=== PATIENT | female | born 1950 | race Hispanic/Latino ===

== ENCOUNTER 2016-11-26 16:12 | Inpatient (IN) | payer MEDICARE ==
[2016-11-26] MEDS ORDERED: DUONEB *Not for PRN Use IH ONE (17:28)
--- NOTE | 2016-11-26 17:28 | Emergency Department Report ---
ED Shortness of Breath HPI - General Chief Complaint: Dyspnea/Respdistress Stated Complaint: CHEST PAIN/SOB Source: patient, EMS Mode of arrival: Stretcher Limitations: No Limitations - History of Present Illness MD Complaint: shortness of breath -: Sudden Severity: severe Pain Scale: 6 Quality: aching Consistency: constant Improves With: bronchodilators Worsens With: exertion Known History Of: COPD Context: recent URI Associated Symptoms: chest pain, pain with inspiration Treatments Prior to Arrival: bronchodilator - Related Data Home Oxygen Therapy: No Home Medications Medication Instructions Recorded Confirmed Last Taken Atenolol [Tenormin] 25 mg PO DAILY 11/26/16 11/26/16 Unknown Morphine ER 11/26/16 Unknown Allergies Allergy/AdvReac Type Severity Reaction Status Date / Time levofloxacin [From Levaquin] Allergy Itching Verified 05/03/14 11:36 acetaminophen [From Percocet] AdvReac Unknown Verified 05/03/14 11:36 oxycodone HCl [From Percocet] AdvReac Unknown Verified 05/03/14 11:36 ED Review of Systems ROS: Stated complaint: CHEST PAIN/SOB Other details as noted in HPI Comment: All other systems reviewed and negative Respiratory: SOB at rest, wheezing Cardiovascular: chest pain, dyspnea on exertion ED Past Medical Hx - Past Medical History Hx Hypertension: Yes Hx COPD: Yes Additional medical history: bronchitis, chiari malformation - Surgical History Hx Cholecystectomy: Yes Hx Appendectomy: Yes Additional Surgical History: nasal repair, lymph node remove - Social History Smoking Status: Current Every Day Smoker Substance Use Type: None - Medications Home Medications: Home Medications Medication Instructions Recorded Confirmed Last Taken Type Atenolol [Tenormin] 25 mg PO DAILY 11/26/16 11/26/16 Unknown History Morphine ER 11/26/16 Unknown History ED Physical Exam - General Limitations: No Limitations General appearance: in distress - Head Head exam: Present: atraumatic - Eye Eye exam: Present: normal appearance Pupils: Present: normal accommodation - Respiratory Respiratory exam: Present: respiratory distress, wheezes, decreased breath sounds - Cardiovascular Cardiovascular Exam: Present: regular rate - GI/Abdominal GI/Abdominal exam: Present: soft - Rectal Rectal exam: Present: deferred - Extremities Exam Extremities exam: Present: normal inspection - Back Exam Back exam: Present: normal inspection - Neurological Exam Neurological exam: Present: alert - Skin Skin exam: Present: warm, dry ED Course Vital Signs 11/26/16 11/26/16 11/26/16 17:34 18:00 18:15 Temperature 98.3 F Pulse Rate 80 Pulse Rate [ 75 80 Anterior Bilateral Upper Lobe] Respiratory 20 Rate Respiratory 18 18 Rate [Anterior Bilateral Upper Lobe] Blood Pressure 121/66 [Right] O2 Sat by Pulse 92 Oximetry - Reevaluation(s) Reevaluation #1: 11/26/16 18:36 improved with meds ED Medical Decision Making - Lab Data Result diagrams: 11/26/16 Unknown 11/26/16 16:50 Critical Care Time: Yes (30) Critical care attestation.: If time is entered above; I have spent that time in minutes in the direct care of this critically ill patient, excluding procedure time. 30 ED Disposition Clinical Impression: Respiratory distress Disposition: DC-09 OP ADMIT IP TO THIS HOSP Is pt being admited?: Yes Does the pt Need Aspirin: No Condition: Undetermined Referrals: PRIMARY CARE, [Primary Care Provider] - 3-5 Days
[2016-11-26 18:02] LABS: Basophils % (Auto) 1.2 % (0.0-1.8); Eosinophils % (Auto) 0.8 % (0.0-4.3); Hemoglobin 19.3 gm/dl (10.1-14.3); Mean Corpuscular HGB Conc 33 % (30-34); Mean Corpuscular Hemoglobin 30 pg (28-32); Mean Corpuscular Volume 91 fl (79-97); Platelet Count 194 K/mm3 (140-440); Red Blood Count 6.44 M/mm3 (3.65-5.03); Red Cell Distribution Width 14.6 % (13.2-15.2)
[2016-11-26 18:04] LABS: Anion Gap 20 mmol/L; BUN/Creatinine Ratio 13.75; Blood Urea Nitrogen 11 mg/dL (7-17); Calcium 10.8 mg/dL (8.4-10.2); Carbon Dioxide 31 mmol/L (22-30); Chloride 91.8 mmol/L (98-107); Glucose 110 mg/dL (65-100); Potassium 3.9 mmol/L (3.6-5.0); Sodium 139 mmol/L (137-145)
[2016-11-26 18:06] LABS: Hematocrit 58.4 % (30.3-42.9)
[2016-11-26 18:34] LABS: ISTAT Base Excess 5; ISTAT DEVICE 0; ISTAT HCO3 28.3; ISTAT PCO2 39.5 (35-45); ISTAT PH 7.464 (7.35-7.45); ISTAT PO2 48 (80-105); ISTAT SO2 86; ISTAT TCO2 29
[2016-11-26] MEDS ORDERED: NACL 0.9% 1000 ML 1,000 ML IV ONE (18:34)
[2016-11-26] MEDS ORDERED: TORADOL IV ONE (19:53)
--- NOTE | 2016-11-26 20:15 | History and Physical Report ---
History of Present Illness Date of examination: 11/26/16 Date of admission: 11/26/16 Chief complaint: 66-year-old female with chief complaint of increasing shortness of breath for 2-3 days. + History of present illness: [place]: 66-year-old female with hypertension COPD nicotine dependence comes in for increasing shortness of breath and wheezing for the last 2-3 days. Patient has been having cough productive of yellow sputum to mucoid sputum. No fever. No chills. Occasional chest pain on deep inspiration present. No exertional chest pain. Patient does smoke several 7 cigarettes a day. Has cut down from one packet to 7 cigarettes and and wants to quit altogether over a period of time. Recently diagnosed with URI. Was unable to complete antibiotic course due to antibiotics upsetting stomach. O2 sats 82% on room air and was given albuterol and worked and was placed on 3 L nasal cannula oxygen and her sats improved to 96%. Past Medical History Hx Hypertension: Yes Hx COPD: Yes Additional medical history: bronchitis, chiari malformation - Surgical History Hx Cholecystectomy: Yes Hx Appendectomy: Yes Additional Surgical History: nasal repair, lymph node remove - Social History Smoking Status: Current Every Day Smoker-7 cigs/day Substance Use Type: None Medications and Allergies Allergies Allergy/AdvReac Type Severity Reaction Status Date / Time levofloxacin [From Levaquin] Allergy Itching Verified 05/03/14 11:36 acetaminophen [From Percocet] AdvReac Unknown Verified 05/03/14 11:36 oxycodone HCl [From Percocet] AdvReac Unknown Verified 05/03/14 11:36 Home Medications Medication Instructions Recorded Confirmed Last Taken Type Atenolol [Tenormin] 25 mg PO DAILY 11/26/16 11/26/16 Unknown History Doxylamine Succinate [Unisom] 25 mg PO QHS PRN 11/26/16 11/26/16 Unknown History Morphine Sulfate [Morphine Sulfate 40 mg PO QID 11/26/16 11/26/16 11/26/16 14: 30 History ER] Tizanidine HCl [Zanaflex] 4 mg PO PRN PRN 11/26/16 11/26/16 Unknown History Review of Systems All systems: negative Constitutional: no weight loss, no weight gain, no fever, no chills Ears, nose, mouth and throat: no dysphagia, no hoarseness, no sore throat, no swelling in mouth, no swelling in throat, no odynophagia Breasts: deferred Cardiovascular: chest pain, shortness of breath, dyspnea on exertion, no orthopnea, no palpitations, no rapid/irregular heart beat, no edema, no syncope , no lightheadedness Respiratory: cough, cough with sputum, shortness of breath, dyspnea on exertion , congestion, wheezing Gastrointestinal: no abdominal pain, no nausea, no vomiting, no diarrhea, no constipation Genitourinary Female: no dysuria, no urinary frequency, no urgency, no stress incontinence, no post void dribbling Menstruation: ammenorrhea Musculoskeletal: no neck stiffness, no neck pain, no shooting arm pain, no arm numbness/tingling, no low back pain, no shooting leg pain, no leg numbness/ tingling, no redness of joints Integumentary: no rash, no pruritis, no redness, no sores, no wounds, no jaundice, no boils, no blisters Neurological: no seizures, no syncope Psychiatric: anxiety, no memory loss, no change in sleep habits, no sleep disturbances, no insomnia, no hypersomnia, no change in appetite Endocrine: no cold intolerance, no heat intolerance, no polyphagia, no excessive thirst, no polydipsia, no polyuria Hematologic/Lymphatic: no easy bruising, no easy bleeding Allergic/Immunologic: wheezing, no urticaria, no allergic rhinitis Exam - Physical Exam Narrative exam: Elderly female in slight respiratory distress to moderate distress. - Constitutional Vitals: Temp Pulse Resp BP Pulse Ox 98.3 F 80 18 121/66 92 11/26/16 17:34 11/26/16 18:15 11/26/16 18:15 11/26/16 17:34 11/26/16 17:34 General appearance: Present: mild distress, well-nourished - EENT Eyes: Present: PERRL ENT: hearing intact, clear oral mucosa - Neck Neck: Present: supple, normal ROM - Respiratory Respiratory effort: normal Respiratory: bilateral: diminished, rhonchi - Cardiovascular Heart rate: 80 Rhythm: regular Heart Sounds: Present: S1 & S2. Absent: rub, click - Extremities Extremities: pulses symmetrical, No edema Peripheral Pulses: within normal limits - Abdominal General gastrointestinal: Present: soft, non-tender, non-distended, normal bowel sounds Female genitourinary: Present: normal - Rectal Rectal Exam: deferred - Integumentary Integumentary: Present: clear, warm, dry - Musculoskeletal Musculoskeletal: gait normal, strength equal bilaterally - Psychiatric Psychiatric: appropriate mood/affect, intact judgment & insight - Neurologic Neurologic: CNII-XII intact, moves all extremities - Allied Health Allied health notes reviewed: nursing, case management Results - Labs CBC & Chem 7: 11/26/16 Unknown 11/26/16 16:50 Labs: Laboratory Last Values WBC 10.0 K/mm3 (4.5-11.0) 11/26/16 Unknown RBC 6.44 M/mm3 (3.65-5.03) H 11/26/16 Unknown Hgb 19.3 gm/dl (10.1-14.3) H D 11/26/16 Unknown Hct 58.4 % (30.3-42.9) H* D 11/26/16 Unknown MCV 91 fl (79-97) D 11/26/16 Unknown MCH 30 pg (28-32) 11/26/16 Unknown MCHC 33 % (30-34) 11/26/16 Unknown RDW 14.6 % (13.2-15.2) 11/26/16 Unknown Plt Count 194 K/mm3 (140-440) 11/26/16 Unknown Lymph % (Auto) 22.3 % (13.4-35.0) 11/26/16 Unknown Door % (Auto) 6.7 % (0.0-7.3) 11/26/16 Unknown Eos % (Auto) 0.8 % (0.0-4.3) 11/26/16 Unknown Baso % (Auto) 1.2 % (0.0-1.8) 11/26/16 Unknown Lymph # 2.2 K/mm3 (1.2-5.4) 11/26/16 Unknown Door # 0.7 K/mm3 (0.0-0.8) 11/26/16 Unknown Eos # 0.1 K/mm3 (0.0-0.4) 11/26/16 Unknown Baso # 0.1 K/mm3 (0.0-0.1) 11/26/16 Unknown Seg Neutrophils % 69.0 % (40.0-70.0) 11/26/16 Unknown Seg Neutrophils # 6.9 K/mm3 (1.8-7.7) 11/26/16 Unknown POC ABG pH 7.464 (7.35-7.45) H 11/26/16 18:21 POC ABG pCO2 39.5 (35-45) 11/26/16 18:21 POC ABG pO2 48 (80-105) L 11/26/16 18:21 POC ABG HCO3 28.3 11/26/16 18:21 POC ABG Total CO2 29 11/26/16 18:21 POC ABG O2 Sat 86 11/26/16 18:21 POC ABG Base Excess 5 11/26/16 18:21 FiO2 21 % 11/26/16 18:21 Sodium 139 mmol/L (137-145) 11/26/16 16:50 Potassium 3.9 mmol/L (3.6-5.0) 11/26/16 16:50 Chloride 91.8 mmol/L (98-107) L 11/26/16 16:50 Carbon Dioxide 31 mmol/L (22-30) H 11/26/16 16:50 Anion Gap 20 mmol/L 11/26/16 16:50 BUN 11 mg/dL (7-17) 11/26/16 16:50 Creatinine 0.8 mg/dL (0.7-1.2) 11/26/16 16:50 Estimated GFR > 60 ml/min 11/26/16 16:50 BUN/Creatinine Ratio 13.75 % 11/26/16 16:50 Glucose 110 mg/dL (65-100) H 11/26/16 16:50 Calcium 10.8 mg/dL (8.4-10.2) H 11/26/16 16:50 Troponin T < 0.010 ng/mL (0.00-0.029) 11/26/16 16:50 - Imaging and Cardiology EKG: report reviewed Chest x-ray: report reviewed (no acute findings.) Assessment and Plan Advance Directives: Yes (full code) VTE prophylaxis?: Chemical Plan of care discussed with patient/family: Yes - Patient Problems (1) Acute respiratory failure Current Visit: Yes Status: Acute Qualifiers: Respiratory failure complication: hypoxia Qualified Code(s): J96.01 - Acute respiratory failure with hypoxia Plan to address problem: Patient was hypoxic on the field. Was put on nasal cannula oxygen and was given nebulizer treatments after which she improved. Patient to return to her nebs every 6 [id number] and every 3 when necessary. Also IV Levaquin 750 mg once a day and IV Solu-Medrol 80 mg every 8 hours. Will get pulmonary consult if necessary. Patient was changed from Levaquin to Rocephin and Zithromax because of allergy to Levaquin. (2) COPD exacerbation Current Visit: Yes Status: Acute Plan to address problem: Continue duo nebs steroids and IV antibiotics. Pulmonary consultation if necessary. (3) Hypertension Current Visit: Yes Status: Chronic Qualifiers: Hypertension type: essential hypertension Qualified Code(s): I10 - Essential (primary) hypertension Plan to address problem: Continue atenolol 25 mg once a day (4) Chronic pain Current Visit: Yes Status: Chronic Qualifiers: Chronic pain type: other chronic pain Qualified Code(s): G89.29 - Other chronic pain Plan to address problem: Patient has severe low back pain. Patient on morphine sulfate and Zanaflex. Patient to use her own medications. (5) Polycythemia Current Visit: Yes Status: Acute Plan to address problem: Secondary to chronic hypoxemia. I don't think there is any primary polycythemia. It is a compensatory mechanism. May improve with chronic oxygen therapy even after discharge. I don't think she needs phlebotomy. Patient may need home oxygen. We will get to her room oxygen sats at the time of discharge and qualify her for home oxygen (6) DVT prophylaxis Current Visit: Yes Status: Acute Plan to address problem: On Lovenox 40 mg subcutaneous daily
[2016-11-26] MEDS ORDERED: ZOFRAN IV PRN (20:20)
[2016-11-26] MEDS ORDERED: DULCOLAX PR PRN (20:20)
[2016-11-26] MEDS ORDERED: MILK OF MAGNESIA PO PRN (20:20)
[2016-11-26] MEDS ORDERED: TYLENOL PO PRN (20:20)
[2016-11-26] MEDS ORDERED: AMBIEN PO PRN (20:21)
[2016-11-26] MEDS ORDERED: PERCOCET 5/325 PO PRN (20:21)
[2016-11-26] MEDS ORDERED: DUONEB *Not for PRN Use IH (20:27)
[2016-11-26] MEDS ORDERED: NON-FORMULARY (Tizanidine Hcl [Zanaflex] 4 MG) PO PRN (20:39)
[2016-11-26] MEDS ORDERED: DOXYLAMINE SUCCINATE 25 MG PO PRN (20:39)
[2016-11-26] MEDS ORDERED: PROVENTIL IH PRN (20:40)
[2016-11-26] MEDS ORDERED: HABITROL TD ONE (21:00)
[2016-11-26] MEDS ORDERED: D5NS 1,000 ML IV SCH (21:00)
[2016-11-26] MEDS ORDERED: LEVAQUIN 750MG/150ML 750 MG/150 ML BAG IV SCH (21:00)
[2016-11-26] MEDS ORDERED: MORPHINE SULFATE 40 MG PO PRN (21:18)
[2016-11-26] MEDS ORDERED: ROCEPHIN/NS 2 GM/100 ML 2 GM/100 ML BAG IV SCH (22:00)
[2016-11-26] MEDS ORDERED: MORPHINE SULFATE 40 MG PO SCH (22:00)
[2016-11-26] MEDS ORDERED: MORPHINE PO PRN (22:42)
[2016-11-26] MEDS: DILAUDID IV PRN (23:51)
[2016-11-27] MEDS: DUONEB *Not for PRN Use IH SCH ×5 (02:05→19:50)
[2016-11-27] MEDS: DILAUDID IV PRN ×3 (04:27→22:02)
[2016-11-27 05:44] LABS: Basophils % (Auto) 0.1 % (0.0-1.8); Hematocrit 51.7 % (30.3-42.9); Hemoglobin 16.9 gm/dl (10.1-14.3); Mean Corpuscular HGB Conc 33 % (30-34); Mean Corpuscular Hemoglobin 30 pg (28-32); Mean Corpuscular Volume 93 fl (79-97); Platelet Count 163 K/mm3 (140-440); Red Blood Count 5.58 M/mm3 (3.65-5.03); Red Cell Distribution Width 14.1 % (13.2-15.2); White Blood Count 6.4 K/mm3 (4.5-11.0)
[2016-11-27 06:04] LABS: Alanine Aminotransferase 9 units/L (7-56); Albumin 3.5 g/dL (3.9-5); Albumin/Globulin Ratio 1.1 %; Alkaline Phosphatase 47 units/L (35-129); Anion Gap 20 mmol/L; BUN/Creatinine Ratio 18.75; Blood Urea Nitrogen 15 mg/dL (7-17); Calcium 9.2 mg/dL (8.4-10.2); Carbon Dioxide 26 mmol/L (22-30); Chloride 94.4 mmol/L (98-107); Glucose 186 mg/dL (65-100); Potassium 4.1 mmol/L (3.6-5.0); Sodium 136 mmol/L (137-145); Total Protein 6.8 g/dL (6.3-8.2)
--- NOTE | 2016-11-27 07:56 | XRay Report ---
CHEST XRAY, 2 VIEWS: History: Shortness of breath. Findings: There is mild diffuse interstitial coarsening. The lungs are hyperexpanded but clear. No infiltrate, pleural fluid or pneumothorax is detected. The cardiac silhouette and pulmonary vasculature are within normal limits for technique. The bony thorax is unremarkable. IMPRESSION: Changes consistent with COPD. No acute cardiopulmonary process.
[2016-11-27] MEDS: PEPCID PO SCH ×3 (09:02→22:01)
[2016-11-27] MEDS: TENORMIN PO SCH ×2 (09:02→09:03)
[2016-11-27] MEDS: ZANAFLEX PO PRN ×2 (09:03→21:57)
--- NOTE | 2016-11-27 14:41 | Admit Criteria Form ---
Admission Criteria Documentation: COPD Clinical Indications for Admission to Inpatient Care (Place 'X' for any and all applicable criteria): Admission is indicated for ANY ONE of the following (1)(2)(3): [ ]I. Acute exacerbation by high-risk comorbidity (e.g., pneumonia, dysrhythmia, heart failure, pleural effusion, pneumothorax) or severe underlying COPD (e.g., steroid dependent) [ X]II. Inpatient admission required rather than observation care (see Chronic Obstructive Pulmonary Disease: Observation Care) because of ANY ONE of the following: [X ]a) New or pre-existing signs or symptoms of COPD (eg, dyspnea or Tachypnea at rest or with minimal activity) that persist despite outpatient and observation care treatment [ ]b) New-onset hypoxemia (room air SaO2 less than 90%, PO2 less than 60 mm Hg (8.0 kPa)) that persists despite outpatient and observation care treatment [ ]c) Worsening of pre-existing hypoxemia (eg, new or increased requirement for supplemental oxygen to maintain oxygenation at baseline level) that persists despite outpatient and observation care treatment, with oxygen treatment needs performable only in acute inpatient setting [ ]d) Hypercarbia (PCO2 greater than 40 mm Hg (5.3 kPa))-induced respiratory acidosis (pH less than 7.35) that persists despite outpatient and observation care treatment [ ]e) Supplemental oxygen or respiratory treatments for over 24 hours that are performable only in acute inpatient setting [ ]f) Chest tube placement with active evacuation (e.g., suction, drainage) (5) [ ]g) Other condition, treatment or monitoring requiring inpatient admission [ ]III. Planned invasive surgical or diagnostic procedures requiring acute- care hospitalization [ X]IV. Acute respiratory failure (e.g., uncompensated hypercarbia, severe hypoxemia) [ ]V. Severe comorbid condition (e.g., severe steroid myopathy, acute vertebral fracture) that has acutely worsened pulmonary function [ ]. Confusion state, lethargy, obtundation, stupor or coma Extended stay beyond goal length of stay may be needed for (31)(32): [ ]a ) Respiratory Failure. [ ]b) Severe or persisting hypoxemia or hypercarbia [ ]c) Severe or persistent dyspnea [ ]d) Comorbidities (e.g. chronic heart failure, atrial fibrillation with rapid response, pneumonia) [ ]e) Malnutrition The original [facility] content created by [facility] has been revised. The portions of the content which have been revised are identified through the use of italic text or in bold, and [facility] has neither reviewed nor approved the modified material. All other unmodified content is copyright [facility]. Please see references footnoted in the original [facility] edition 2016 Admission Criteria Met: Yes
--- NOTE | 2016-11-27 16:31 | Progress Note ---
Assessment and Plan Assessment and plan: 66-year-old female with hypertension COPD nicotine dependence comes in for increasing shortness of breath and wheezing for the last 2-3 days. Patient has been having cough productive of yellow sputum to mucoid sputum. No fever. No chills. Occasional chest pain on deep inspiration present. No exertional chest pain. Patient does smoke several 7 cigarettes a day. Has cut down from one packet to 7 cigarettes and and wants to quit altogether over a period of time. Recently diagnosed with URI. Was unable to complete antibiotic course due to antibiotics upsetting stomach. O2 sats 82% on room air and was given albuterol and worked and was placed on 3 L nasal cannula oxygen and her sats improved to 96%. (1) Acute respiratory failure with hypoxia Patient was hypoxic on the field. Was put on nasal cannula oxygen and was given nebulizer treatments after which she improved. Continue nebulizer scheduled. Perform home O2 eval prior to discharge. (2) COPD exacerbation continue IV Levaquin 750 mg once a day and taper Solu-Medrol 40 mg every 8 hours. Continue azithromycin Continue duo nebs steroids and IV antibiotics. (3) Hypertension Continue atenolol 25 mg once a day We'll discontinue D5 and the suspicion was tolerating by mouth intake. (4) Chronic pain Patient has severe low back pain. Patient on morphine sulfate and Zanaflex. Patient to use her own medications. (5) Polycythemia Secondary to chronic hypoxemia. Agreed that this is not primary polycythemia. It is a compensatory mechanism. May improve with chronic oxygen therapy even after discharge. I don't think she needs phlebotomy. Patient may need home oxygen. We will get to her room oxygen sats at the time of discharge and qualify her for home oxygen (6) DVT prophylaxis On Lovenox 40 mg subcutaneous daily Plan of care discussed with the patient in detail she verbalizes understanding. History Interval history: Patient seen and examined today in no acute distress reports improvement but not quite at baseline yet. She denies any use of oxygen at home. She states she feels she needs to be evaluated for this. Unfortunately she continues to smoke although has cut down. She denies any chest pain at this time. No other adverse event reported to me by nursing staff Hospitalist Physical - Physical exam Narrative exam: VITAL SIGNS: Reviewed. GENERAL: The patient appeared well nourished and normally developed. Vital signs as documented. HEAD: No signs of head trauma. EYES: Pupils are equal. Extraocular motions intact. EARS: Hearing grossly intact. MOUTH: Oropharynx is normal. NECK: No adenopathy, no JVD. CHEST: Chest with diminished breath sounds bilaterally. No wheezes, rales, or rhonchi. CARDIAC: Regular rate and rhythm. S1 and S2, without murmurs, gallops, or rubs. VASCULAR: No Edema. Peripheral pulses normal and equal in all extremities. ABDOMEN: Soft, without detectable tenderness. No sign of distention. No rebound or guarding, and no masses palpated. Bowel Sounds normal. MUSCULOSKELETAL: Good range of motion of all major joints. Extremities without clubbing, cyanosis or edema. NEUROLOGIC EXAM: Alert and oriented x 3. No focal sensory or strength deficits. Speech normal. Follows commands. PSYCHIATRIC: Mood normal. SKIN: No rash or lesions. - Constitutional Vitals: Temp Pulse Resp BP Pulse Ox 98.2 F 94 H 18 108/52 95 11/27/16 15:39 11/27/16 15:39 11/27/16 15:39 11/27/16 15:39 11/27/16 15:39 General appearance: Present: mild distress, well-nourished Results - Labs CBC & Chem 7: 11/27/16 03:56 11/27/16 03:56 Labs: Laboratory Last Values WBC 6.4 K/mm3 (4.5-11.0) 11/27/16 03:56 RBC 5.58 M/mm3 (3.65-5.03) H 11/27/16 03:56 Hgb 16.9 gm/dl (10.1-14.3) H 11/27/16 03:56 Hct 51.7 % (30.3-42.9) H D 11/27/16 03:56 MCV 93 fl (79-97) 11/27/16 03:56 MCH 30 pg (28-32) 11/27/16 03:56 MCHC 33 % (30-34) 11/27/16 03:56 RDW 14.1 % (13.2-15.2) 11/27/16 03:56 Plt Count 163 K/mm3 (140-440) 11/27/16 03:56 Lymph % (Auto) 16.8 % (13.4-35.0) 11/27/16 03:56 [place] % (Auto) 2.0 % (0.0-7.3) 11/27/16 03:56 Eos % (Auto) 0.0 % (0.0-4.3) 11/27/16 03:56 Baso % (Auto) 0.1 % (0.0-1.8) 11/27/16 03:56 Lymph # 1.1 K/mm3 (1.2-5.4) L 11/27/16 03:56 [place] # 0.1 K/mm3 (0.0-0.8) 11/27/16 03:56 Eos # 0.0 K/mm3 (0.0-0.4) 11/27/16 03:56 Baso # 0.0 K/mm3 (0.0-0.1) 11/27/16 03:56 Seg Neutrophils % 81.1 % (40.0-70.0) H 11/27/16 03:56 Seg Neutrophils # 5.2 K/mm3 (1.8-7.7) 11/27/16 03:56 POC ABG pH 7.464 (7.35-7.45) H 11/26/16 18:21 POC ABG pCO2 39.5 (35-45) 11/26/16 18:21 POC ABG pO2 48 (80-105) L 11/26/16 18:21 POC ABG HCO3 28.3 11/26/16 18:21 POC ABG Total CO2 29 11/26/16 18:21 POC ABG O2 Sat 86 11/26/16 18:21 POC ABG Base Excess 5 11/26/16 18:21 FiO2 21 % 11/26/16 18:21 Sodium 136 mmol/L (137-145) L 11/27/16 03:56 Potassium 4.1 mmol/L (3.6-5.0) 11/27/16 03:56 Chloride 94.4 mmol/L (98-107) L 11/27/16 03:56 Carbon Dioxide 26 mmol/L (22-30) 11/27/16 03:56 Anion Gap 20 mmol/L 11/27/16 03:56 BUN 15 mg/dL (7-17) 11/27/16 03:56 Creatinine 0.8 mg/dL (0.7-1.2) 11/27/16 03:56 Estimated GFR > 60 ml/min 11/27/16 03:56 BUN/Creatinine Ratio 18.75 % 11/27/16 03:56 Glucose 186 mg/dL (65-100) H 11/27/16 03:56 Hemoglobin A1c 5.3 % (4-6) 11/26/16 16:50 Calcium 9.2 mg/dL (8.4-10.2) 11/27/16 03:56 Total Bilirubin 0.30 mg/dL (0.1-1.2) 11/27/16 03:56 AST 18 units/L (5-40) 11/27/16 03:56 ALT 9 units/L (7-56) 11/27/16 03:56 Alkaline Phosphatase 47 units/L (35-129) 11/27/16 03:56 Troponin T < 0.010 ng/mL (0.00-0.029) 11/26/16 16:50 Total Protein 6.8 g/dL (6.3-8.2) 11/27/16 03:56 Albumin 3.5 g/dL (3.9-5) L 11/27/16 03:56 Albumin/Globulin Ratio 1.1 % 11/27/16 03:56 - Imaging and Cardiology Chest x-ray: image reviewed (hyperinflation)
[2016-11-27] MEDS: ZITHROMAX 500 MG in NACL 0.9% 250ML 250 ML IV SCH (21:55)
[2016-11-27] MEDS ORDERED: ROCEPHIN/NS 1 GM/50 ML 1 GM/50 ML BAG IV SCH (22:00)
[2016-11-27] MEDS: LOVENOX SUB-Q SCH ×2 (22:03→22:06)
[2016-11-28] MEDS: DUONEB *Not for PRN Use IH SCH ×3 (02:34→13:59)
[2016-11-28 05:09] LABS: Hematocrit 50.9 % (30.3-42.9); Hemoglobin 16.4 gm/dl (10.1-14.3); Mean Corpuscular HGB Conc 32 % (30-34); Mean Corpuscular Hemoglobin 29 pg (28-32); Mean Corpuscular Volume 91 fl (79-97); Platelet Count 166 K/mm3 (140-440); Red Blood Count 5.59 M/mm3 (3.65-5.03); White Blood Count 16.3 K/mm3 (4.5-11.0)
[2016-11-28] MEDS: DILAUDID IV PRN ×3 (06:48→12:58)
[2016-11-28] MEDS: ZITHROMAX 500 MG in NACL 0.9% 250ML 250 ML IV SCH (06:49)
[2016-11-28] MEDS: TENORMIN PO SCH (10:09)
[2016-11-28] MEDS: PEPCID PO SCH (10:09)
[2016-11-28 10:20] VITALS: BP 123/59
--- NOTE | 2016-11-28 10:38 | Discharge Summary ---
Providers - Providers Date of Admission: 11/26/16 18:30 Date of discharge: 11/28/16 Attending physician: SOREN WRIGHT Primary care physician: RONNY REYES MD Hospitalization Condition: Fair Hospital course: Patient is 66 yo with COPD presented with shortness of breath. She was diagnosed with COPD exacerbation. She was hypoxic, was put on Oxygen, solumedrol iv , Duoneb nebulizer and admitted. She improved. Shortness of breath improved. Patient however had Oxygen sat 84% on room air on ambulation, therefore was referred for home Oxygen . Patient was discharged home on home Oxygen on 11/28/16 to follow as outpatient. Total time spent on discharge, 32 mins. Disposition: [id number]/TX-[id number] HOME UNDER HOME HLTH - Discharge Diagnoses (1) Acute respiratory failure Status: Acute Qualifiers: Respiratory failure complication: hypoxia Qualified Code(s): J96.01 - Acute respiratory failure with hypoxia (2) COPD exacerbation Status: Acute (3) Polycythemia Status: Acute (4) Hypertension Status: Chronic Qualifiers: Hypertension type: essential hypertension Qualified Code(s): I10 - Essential (primary) hypertension (5) Hyponatremia Status: Acute Core Measure Documentation - Palliative Care Palliative Care/ Comfort Measures: Not Applicable - Core Measures Any of the following diagnoses?: none Exam - Constitutional Vitals: Temp Pulse Resp BP Pulse Ox 98.0 F 77 20 123/59 97 11/28/16 10:17 11/28/16 10:09 11/28/16 10:17 11/28/16 10:17 11/28/16 10:17 General appearance: Present: no acute distress - EENT ENT: hearing intact - Respiratory Respiratory: bilateral: diminished - Cardiovascular Rhythm: regular Heart Sounds: Present: S1 & S2 - Extremities Extremities: No edema - Musculoskeletal Musculoskeletal: strength equal bilaterally Plan Activity: advance as tolerated Diet: low salt Durable Medical Equipment Needed Upon Discharge: Oxygen Additional Instructions: 1.Follow up with PCP in 1 week. 2.Follow up with Clinical Data Associate in 1 week. 3.Home Oxygen at 2 l/min continuous. Follow up with: PRIMARY CAREMD [Primary Care Provider] - 3-5 Days Prescriptions: Albuterol Sulfate [Ventolin HFA] 2 puff IH Q4H PRN #1 [email or web address] PRN Reason: Shortness Of Breath Azithromycin [Zithromax] 250 mg PO DAILY 5 Days Prednisone [predniSONE 5 mg (6-Day Pack, 21 Tabs)] 5 mg PO .TAPER #1 tab.ds.pk
[2016-11-28] MEDS: ZANAFLEX PO PRN (12:58)
[2016-11-28] MEDS ORDERED: ZITHROMAX PO SCH (23:00)
== END 2016-11-28 17:07 | disposition home health service (06) | DRG 189 ==
LOC: ED 16:12 → 4A 18:30
PROVIDERS: ADMIT Internal Medicine; ATTEND Internal Medicine
PROC: 4A033R1 Measurement of Arterial Saturation, Peripheral, Percutaneous Approach (ICD-10-PCS; principal; 2016-11-26)
DX: J96.01 Acute respiratory failure with hypoxia (principal); J44.1 Chronic obstructive pulmonary disease with (acute) exacerbation; D75.1 Secondary polycythemia; I10 Essential (primary) hypertension; F17.210 Nicotine dependence, cigarettes, uncomplicated; G89.29 Other chronic pain; M54.5 Low back pain; Z90.49 Acquired absence of other specified parts of digestive tract
CPT/HCPCS: 36415; 71020; 80048; 80053; 82803; 83036; 84484; 85025; 85027; 87076; 87116; 87186; 93005; 93010; 94640; 94760; 96374; 96375; 99291; J0456; J0696; J1170; J1650; J1885; J2405; J2920; J2930; J7030; J7042; J7050

== ENCOUNTER 2020-08-16 05:29 | Emergency (ER) | payer MEDICARE ==
[2020-08-16] MEDS ORDERED: ASPIRIN 325 MG TAB PO ONE (06:12)
[2020-08-16] MEDS ORDERED: ONDANSETRON 4 MG/2 ML INJ IV ONE (06:13)
--- NOTE | 2020-08-16 06:41 | XRay Report ---
CHEST 1 VIEW INDICATION: chest pain COMPARISON: 10/27/2016 FINDINGS: Support devices: None Heart: Normal Lungs/Pleura: Right inferior hilar density is thought to be vascular. Lungs are mildly hyperinflated but clear of acute disease. IMPRESSION: 1. No definite acute disease and no interval change. Signer Name: Hans Jamison MD Signed: 08/16/2020 6:37 AM Workstation Name: [id number]
--- NOTE | 2020-08-16 06:58 | Emergency Department Report ---
ED Chest Pain HPI - General Chief Complaint: Chest Pain Stated Complaint: CHEST PAIN Time Seen by Provider: 08/16/20 06:05 Source: EMS Mode of arrival: Stretcher Limitations: No Limitations - History of Present Illness Initial Comments: Patient is a 69-year-old female who is presenting with chest discomfort. Patient is states issues have been present since yesterday morning. States she is having constant nausea and a burning sensation in the epigastric and midsternal region. Patient states pain is worse actually when she stops moving and sitting still. Denies vomiting diarrhea. She does have mild chronic cough patient has a history of COPD and was referred to have home oxygen and 2017 but states she is not on home oxygen at this time. She denies fevers body aches. Patient states she has a cardiac cath several years ago and does not have stents. Severity scale (0 -10): 10 - Related Data Home Medications Medication Instructions Recorded Confirmed Last Taken Doxylamine Succinate [Unisom] 25 mg PO QHS PRN 11/26/16 11/26/16 Unknown Morphine Sulfate [Morphine Sulfate 40 mg PO QID 11/26/16 11/26/16 11/26/16 14:30 ER] Tizanidine HCl [Zanaflex] 4 mg PO PRN PRN 11/26/16 11/26/16 Unknown atenoloL [Tenormin] 25 mg PO DAILY 11/26/16 11/26/16 Unknown Previous Rx's Medication Instructions Recorded Last Taken Type Albuterol Sulfate [Ventolin HFA] 2 puff IH Q4H PRN #1 hfa.aer.ad 11/28/16 Unknown Rx Azithromycin [Zithromax] 250 mg PO DAILY 5 Days tablet 11/28/16 Unknown Rx Prednisone [predniSONE 5 mg (6-Day 5 mg PO .TAPER #1 tab.ds.pk 11/28/16 Unknown Rx Pack, 21 Tabs)] Ondansetron [Zofran Odt] 4 mg PO Q8HR #10 tab.rapdis 08/16/20 Unknown Rx Allergies Allergy/AdvReac Type Severity Reaction Status Date / Time levofloxacin [From Levaquin] Allergy Itching Verified 05/03/14 11:36 acetaminophen [From Percocet] AdvReac Unknown Verified 05/03/14 11:36 oxycodone HCl [From Percocet] AdvReac Unknown Verified 05/03/14 11:36 Heart Score - HEART Score History: Slightly suspicious EKG: Normal Age: > 65 Risk factors: 1-2 risk factors Troponin: < normal limit HEART Score: 3 - EKG Read Time Time EKG Completed: 06:29 EKG Read Time: 06:30 ED Review of Systems ROS: Stated complaint: CHEST PAIN Other details as noted in HPI Comment: All other systems reviewed and negative ED Past Medical Hx - Past Medical History Previous Medical History?: Yes Hx Hypertension: Yes Hx COPD: Yes Additional medical history: bronchitis, chiari malformation - Surgical History Hx Cholecystectomy: Yes Hx Appendectomy: Yes Additional Surgical History: nasal repair, lymph node remove, hysterectomy - Social History Smoking Status: Current Every Day Smoker Substance Use Type: None - Medications Home Medications: Home Medications Medication Instructions Recorded Confirmed Last Taken Type Doxylamine Succinate [Unisom] 25 mg PO QHS PRN 11/26/16 11/26/16 Unknown History Morphine Sulfate [Morphine Sulfate 40 mg PO QID 11/26/16 11/26/16 11/26/16 14:30 History ER] Tizanidine HCl [Zanaflex] 4 mg PO PRN PRN 11/26/16 11/26/16 Unknown History atenoloL [Tenormin] 25 mg PO DAILY 11/26/16 11/26/16 Unknown History Albuterol Sulfate [Ventolin HFA] 2 puff IH Q4H PRN #1 hfa.aer.ad 11/28/16 Unknown Rx Azithromycin [Zithromax] 250 mg PO DAILY 5 Days tablet 11/28/16 Unknown Rx Prednisone [predniSONE 5 mg (6-Day 5 mg PO .TAPER #1 tab.ds.pk 11/28/16 Unknown Rx Pack, 21 Tabs)] Ondansetron [Zofran Odt] 4 mg PO Q8HR #10 tab.rapdis 08/16/20 Unknown Rx ED Physical Exam - General Limitations: No Limitations General appearance: alert, in no apparent distress - Head Head exam: Present: atraumatic, normocephalic - Eye Eye exam: Present: normal appearance - ENT ENT exam: Present: mucous membranes moist - Neck Neck exam: Present: normal inspection - Respiratory Respiratory exam: Present: normal lung sounds bilaterally. Absent: respiratory distress, wheezes, rales, rhonchi - Cardiovascular Cardiovascular Exam: Present: regular rate, normal rhythm, normal heart sounds. Absent: systolic murmur, diastolic murmur, rubs, gallop - GI/Abdominal GI/Abdominal exam: Present: soft, tenderness (Epigastric), normal bowel sounds. Absent: distended, guarding, rebound, rigid - Extremities Exam Extremities exam: Present: normal inspection - Back Exam Back exam: Present: normal inspection - Neurological Exam Neurological exam: Present: alert, oriented X3 - Psychiatric Psychiatric exam: Present: normal affect, normal mood - Skin Skin exam: Present: warm, dry, intact, normal color. Absent: rash ED Course Vital Signs 08/16/20 08/16/20 08/16/20 05:40 05:46 05:47 Temperature 98.1 F Pulse Rate 76 74 Respiratory 15 14 Rate Blood Pressure 135/69 Blood Pressure [Left] O2 Sat by Pulse 89 88 Oximetry 08/16/20 08/16/20 08/16/20 06:00 06:16 06:30 Temperature Pulse Rate 74 75 77 Respiratory 14 15 16 Rate Blood Pressure 135/69 135/65 135/65 Blood Pressure [Left] O2 Sat by Pulse 88 91 92 Oximetry 08/16/20 08/16/20 08/16/20 07:00 07:30 07:46 Temperature Pulse Rate 111 H 75 Respiratory 26 H 14 Rate Blood Pressure 135/65 162/128 148/89 Blood Pressure [Left] O2 Sat by Pulse 94 99 96 Oximetry 08/16/20 09:25 Temperature Pulse Rate 80 Respiratory 12 Rate Blood Pressure Blood Pressure 94/45 [Left] O2 Sat by Pulse 93 Oximetry ED Medical Decision Making - Lab Data Result diagrams: 08/16/20 06:58 08/16/20 06:58 Lab Results 08/16/20 08/16/20 08/16/20 Range/Units 06:58 06:58 06:58 WBC 8.8 (4.5-11.0) K/mm3 RBC 6.51 H (3.65-5.03) M/mm3 Hgb 19.8 H (10.1-14.3) gm/dl Hct 59.5 H* (30.3-42.9) % MCV 91 (79-97) fl MCH 30 (28-32) pg MCHC 33 (30-34) % RDW 14.0 (13.2-15.2) % Plt Count 165 (140-440) K/mm3 Lymph % (Auto) 8.9 L (13.4-35.0) % Kleberg % (Auto) 1.8 (0.0-7.3) % Eos % (Auto) 0.2 (0.0-4.3) % Baso % (Auto) 0.3 (0.0-1.8) % Lymph # (Auto) 0.8 L (1.2-5.4) K/mm3 Kleberg # (Auto) 0.2 (0.0-0.8) K/mm3 Eos # (Auto) 0.0 (0.0-0.4) K/mm3 Baso # (Auto) 0.0 (0.0-0.1) K/mm3 Seg Neutrophils % 88.8 H (40.0-70.0) % Seg Neutrophils # 7.9 H (1.8-7.7) K/mm3 PT 14.9 (12.2-14.9) Sec. INR 1.17 H (0.87-1.13) APTT 33.2 (24.2-36.6) Sec. D-Dimer 984.78 H (0-234) ng/mlDDU Sodium 132 L (137-145) mmol/L Potassium 4.4 (3.6-5.0) mmol/L Chloride 89.5 L (98-107) mmol/L Carbon Dioxide 32 H (22-30) mmol/L Anion Gap 15 mmol/L BUN 14 (7-17) mg/dL Creatinine 0.9 (0.6-1.2) mg/dL Estimated GFR > 60 ml/min BUN/Creatinine Ratio 16 % Glucose 110 H (65-100) mg/dL Calcium 10.2 (8.4-10.2) mg/dL Total Bilirubin 0.80 (0.1-1.2) mg/dL AST 18 (5-40) units/L ALT 6 L (7-56) units/L Alkaline Phosphatase 82 (35-129) units/L Troponin T < 0.010 (0.00-0.029) ng/mL Total Protein 7.6 (6.3-8.2) g/dL Albumin 3.5 L (3.9-5) g/dL Albumin/Globulin Ratio 0.9 % - EKG Data -: EKG Interpreted by La - EKG Data 08/16/20 06:58 EKG shows normal sinus rhythm rate of 76. Tuthill is normal intervals are normal. Does not appear to be any significant ST elevation or ST depression. Time of interpretation 630 - Radiology Data [address] [address] XRay Report Signed Patient: ELI ORTEGA MR#: [id number] : 1950 Acct:[id number] Age/Sex: 69 / F ADM Date: 08/16/20 Loc: ED Attending Dr: Ordering Physician: ALEYDA SOUZA MD Date of Service: 08/16/20 Procedure(s): XR chest 1V ap Accession Number(s): [id number] cc: ALEYDA SOUZA MD Fluoro Time In Minutes: CHEST 1 VIEW INDICATION: chest pain COMPARISON: 10/27/2016 FINDINGS: Support devices: None Heart: Normal Lungs/Pleura: Right inferior hilar density is thought to be vascular. Lungs are mildly hyperinflated but clear of acute disease. IMPRESSION: 1. No definite acute disease and no interval change. Signer Name: Hans Jamison MD Signed: 08/16/2020 6:37 AM Workstation Name: [id number] t(s) Study Comments [address] [address] Cat Scan Report Signed Patient: ELI ORTEGA MR#: [id number] : 1950 Acct:[id number] Age/Sex: 69 / F ADM Date: 08/16/20 Loc: ED Attending Dr: Ordering Physician: ALEYDA SOUZA MD Date of Service: 08/16/20 Procedure(s): CT angio chest Accession Number(s): [id number] cc: ALEYDA SOUZA MD CTA CHEST WITH CONTRAST INDICATION / CLINICAL INFORMATION: Chest pain. Shortness of breath. TECHNIQUE: Axial CT images were obtained through the chest after injection of Omnipaque 350, 100 cc IV contrast. 3 plane MIP and/or 3D reconstructions were produced. All CT scans at this location are performed using CT dose reduction for ALARA by means of automated exposure control. COMPARISON: None available. FINDINGS: PULMONARY ARTERIES: No pulmonary emboli. THORACIC AORTA: Atherosclerotic disease is mild/moderate. HEART: No significant abnormality. CORONARY ARTERY CALCIFICATION: Mild. MEDIASTINUM / CAROLINE: 9 mm node posterior right hilum. PLEURA: No pleural effusion. No pneumothorax. LUNGS: 2.5 cm spiculated mass superior segment right lower lobe. No acute infiltrate. ADDITIONAL FINDINGS: None. UPPER ABDOMEN: No acute findings. SKELETAL STRUCTURES: No significant osseous abnormality. IMPRESSION: 1. No CT evidence for pulmonary embolism. 2. Mass superior segment right lower lobe worrisome for primary carcinoma with metastatic disease to the right hilum. PET/CT recommended for further evaluation. 3. Negative for pneumonia. Signer Name: Feliciano Dai MD Signed: 08/16/2020 9:06 AM Workstation Name: [id number] [facility] [address] [place] [address] Ultrasound Report Signed Patient: ELI ORTEGA MR#: [id number] : 1950 Acct:[id number] Age/Sex: 69 / F ADM Date: 08/16/20 Loc: ED Attending Dr: Ordering Physician: ALEYDA SOUZA MD Date of Service: 08/16/20 Procedure(s): US abdomen limited Accession Number(s): [id number] cc: ALEYDA SOUZA MD US abdomen limited INDICATION: RUQ pain COMPARISON: None. FINDINGS: Pancreas: Not well-visualized Abdominal aorta: Normal. IVC: Normal. Liver: Normal. Gallbladder: Gallbladder is surgically absent. Bile ducts: Normal. The common bile duct measures 4 mm. Kidneys: Normal. Spleen: Normal. There is no free fluid in the abdomen. IMPRESSION: No significant sonographic abnormality of the abdomen. Signer Name: Rufino Donato MD Signed: 08/16/2020 8:44 AM Workstation Name: [id number] Transcribed By: CS Dictated By: Rufino Donato MD Electronically Authenticated By: Rufino Donato MD Signed Date/Time: 08/16/20 0844 - Medical Decision Making Patient is a 69-year-old female who is presenting with some epigastric discomfort and nausea. Nausea is treated with Zofran and Pepcid and she is feeling much improved. Patient noted to have O2 sat in the mid 80s. Patient is adamant that she is not short of breath. She is not wheezing and she does have a history of COPD. Patient was apparently set up for oxygen therapy at home in 2017 returned the service down. Offered to set up oxygen for the patient there are social work service is here today and the patient states that she does not want to be placed on oxygen. Patient had elevated D-dimer with the atypical chest discomfort hypoxia did order a CTA which did not show a pulmonary embolus with but rather a mass in the right lower lobe. Spoke with the patient letter know that this likely represented lung cancer. She states she will follow-up with her primary care physician. Again the patient is adamant that she does not want any oxygen therapy set up at this time. She appears well compensated with the oxygen saturation levels. Patient requesting to be discharged home. Patient was given a copy of her CT angiogram to give to her primary care physician at [place]. Critical care attestation.: If time is entered above; I have spent that time in minutes in the direct care of this critically ill patient, excluding procedure time. ED Disposition Clinical Impression: COPD (chronic obstructive pulmonary disease), Lung mass, Nausea, Hypoxia Disposition: DC-01 TO HOME OR SELFCARE Is pt being admited?: No Does the pt Need Aspirin: No Condition: Stable Instructions: Chronic Obstructive Pulmonary Disease (ED), Chronic Obstructive Pulmonary Disease Exacerbation, [id number], Hypoxia, Lung Mass, Nausea and Vomiting, Adult, [id number] Additional Instructions: Note to the patient's primary physician: Patient's O2 saturation was in the mid 80s during her ER visit today. Patient states she is not short of breath. She appears well compensated over a long period of time to be comfortable with O2 sat in the mid 80s. D-dimer was elevated but CT angiogram did not show a pulmonary embolus. Patient did have evidence of a lung mass concerning for lung cancer. Attempted to set up oxygen for the patient at home however the patient declined. Please evaluate the patient for hypoxia and lung mass. Prescriptions: Ondansetron [Zofran Odt] 4 mg PO Q8HR #10 tab.rapdis Referrals: PRIMARY CARE, [Primary Care Provider] - 2-3 Days Time of Disposition: 10:10
[2020-08-16 07:47] LABS: Basophils % (Auto) 0.3 % (0.0-1.8); Eosinophils % (Auto) 0.2 % (0.0-4.3); Hemoglobin 19.8 gm/dl (10.1-14.3); Lymphocytes # (Auto) 0.8 K/mm3 (1.2-5.4); Lymphocytes % (Auto) 8.9 % (13.4-35.0); Mean Corpuscular HGB Conc 33 % (30-34); Mean Corpuscular Volume 91 fl (79-97); Monocytes # (Auto) 0.2 K/mm3 (0.0-0.8); Monocytes % (Auto) 1.8 % (0.0-7.3); Red Blood Count 6.51 M/mm3 (3.65-5.03)
[2020-08-16 07:48] LABS: Platelet Count 165 K/mm3 (140-440)
[2020-08-16 07:51] LABS: Hematocrit 59.5 % (30.3-42.9)
[2020-08-16 07:59] LABS: INR 1.17 (0.87-1.13); Partial Thromboplastin Time 33.2 Sec. (24.2-36.6)
[2020-08-16 08:03] LABS: Alanine Aminotransferase 6 units/L (7-56); Albumin 3.5 g/dL (3.9-5); BUN/Creatinine Ratio 16; Blood Urea Nitrogen 14 mg/dL (7-17); Calcium 10.2 mg/dL (8.4-10.2); Hemolysis Index 65
--- NOTE | 2020-08-16 08:48 | Ultrasound Report ---
US abdomen limited INDICATION: RUQ pain COMPARISON: None. FINDINGS: Pancreas: Not well-visualized Abdominal aorta: Normal. IVC: Normal. Liver: Normal. Gallbladder: Gallbladder is surgically absent. Bile ducts: Normal. The common bile duct measures 4 mm. Kidneys: Normal. Spleen: Normal. There is no free fluid in the abdomen. IMPRESSION: No significant sonographic abnormality of the abdomen. Signer Name: Rufino Dontao MD Signed: 08/16/2020 8:44 AM Workstation Name: [id number]
--- NOTE | 2020-08-16 09:11 | Cat Scan Report ---
CTA CHEST WITH CONTRAST INDICATION / CLINICAL INFORMATION: Chest pain. Shortness of breath. TECHNIQUE: Axial CT images were obtained through the chest after injection of Omnipaque 350, 100 cc I V contrast. 3 plane MIP and/or 3D reconstructions were produced. All CT scans at this location are pe rformed using CT dose reduction for ALARA by means of automated exposure control. COMPARISON: None available. FINDINGS: PULMONARY ARTERIES: No pulmonary emboli. THORACIC AORTA: Atherosclerotic disease is mild/moderate. HEART: No significant abnormality. CORONARY ARTERY CALCIFICATION: Mild. MEDIASTINUM / CAROLINE: 9 mm node posterior right hilum. PLEURA: No pleural effusion. No pneumothorax. LUNGS: 2.5 cm spiculated mass superior segment right lower lobe. No acute infiltrate. ADDITIONAL FINDINGS: None. UPPER ABDOMEN: No acute findings. SKELETAL STRUCTURES: No significant osseous abnormality. IMPRESSION: 1. No CT evidence for pulmonary embolism. 2. Mass superior segment right lower lobe worrisome for primary carcinoma with metastatic disease to the right hilum. PET/CT recommended for further evaluation. 3. Negative for pneumonia. Signer Name: Feliciano Dai MD Signed: 08/16/2020 9:06 AM Workstation Name: [id number]
[2020-08-16 10:51] VITALS: BP 100/46
--- NOTE | 2020-08-17 14:37 | Electrocardiograph Report ---
[facility] Test Date: 2020-08-16 Test Time: 06:29:14 Pat Name: ELI ORTEGA Department: Room: Gender: F Business Planning Analyst: LANE : 1950 Requested By: ALEYDA SOUZA Order Number: [id number] Reading MD: Kilo Wells Measurements Intervals [place] Rate: 76 P: 72 [place]: 175 QRS: 32 QRSD: 92 T: 56 QT: 381 QTc: 429 Interpretive Statements Sinus rhythm ST elevation suggests acute pericarditis No previous ECG available for comparison Electronically Signed On 08-17-2020 14:36:56 EDT by Kilo Wells
== END 2020-08-16 10:53 | disposition home or self-care (01) ==
LOC: ED 05:29
DX: J44.9 Chronic obstructive pulmonary disease, unspecified (principal); R09.02 Hypoxemia; R11.0 Nausea; R91.8 Other nonspecific abnormal finding of lung field; I10 Essential (primary) hypertension; F17.200 Nicotine dependence, unspecified, uncomplicated; Z90.49 Acquired absence of other specified parts of digestive tract; Z98.890 Other specified postprocedural states; Z79.2 Long term (current) use of antibiotics; Z79.899 Other long term (current) drug therapy; Z88.8 Allergy status to other drugs, medicaments and biological substances
CPT/HCPCS: 36415; 71045; 71275; 76705; 80053; 84484; 85025; 85379; 85610; 85730; 93005; 96374; 99285; J2405; Q9967